=== PATIENT | male | born 1930 | race Caucasian/White ===

== ENCOUNTER 2018-08-01 09:33 | Outpatient (CLI) | payer MEDICARE ==
--- NOTE | 2018-08-01 13:05 | XRAY Report ---
Reason: left knee pain Procedure Date: 08/01/2018 Accession Number: [id number] / [id number] Procedure: XRN - Knee 3 View LT CPT Code: FULL RESULT: EXAM: LEFT KNEE RADIOGRAPHY EXAM DATE: 08/01/2018 12:25 PM. CLINICAL HISTORY: Left knee pain. COMPARISON: None. TECHNIQUE: 3 views. FINDINGS: Bones: Benign-appearing bone lesion is seen in the distal femur. Joints: Moderate to severe joint space loss in the weightbearing compartments, lateral greater than medial compartment. Soft Tissues: Note is made of atherosclerotic disease. 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 [facility]
== END 2018-08-01 09:34 | disposition home or self-care (01) ==
LOC: DI.N 09:33
PROVIDERS: ATTEND Family Medicine
DX: M17.12 Unilateral primary osteoarthritis, left knee (principal); M25.561 Pain in right knee